=== PATIENT | female | born 1990 | race Caucasian/White ===

== ENCOUNTER 2016-10-29 16:48 | Emergency (ER) | payer SELFPAY ==
[2016-10-29] MEDS: ONDANSETRON HCL/PF 4 MG/ 2ML VIAL IVP ONE (17:00)
[2016-10-29] MEDS: 0.9 % SODIUM CHLORIDE 1,000 ML IV ONE (17:00)
[2016-10-29] MEDS ORDERED: 0.9 % SODIUM CHLORIDE 1,000 ML IV ONE (17:01)
[2016-10-29] MEDS ORDERED: ONDANSETRON HCL/PF 4 MG/ 2ML VIAL ONE (17:01)
[2016-10-29 17:15] LABS: BASOPHILS % 0.6 (0.0-1.5); EOSINOPHILS % 2.5 % (0.0-6.8); LYMPHOCYTES # 3.1 # k/uL (0.6-4.0); MEAN CORPUSCULAR HEMOGLOBIN 28.7 pg (28.0-34.0); MONOCYTES # 0.4 # k/uL (0.0-0.9); MONOCYTES % 3.2 % (0.0-11.0)
[2016-10-29 17:30] LABS: eGFR (African) > 60; eGFR (Non-African) > 60
[2016-10-29] MEDS: DIPHENOXYLATE HCL/ATROPINE 1 EACH TABLET PO ONE (17:36)
--- NOTE | 2016-10-29 18:24 | ED Physician Documentation ---
Nausea/Vomiting/Diarrhea - HISTORIAN Historian: patient - HPI Stated Complaint: Nausea and Vomiting Chief Complaint: Nausea,Vomiting,Diarrhea Additional Information: works at [employer], n/v/d going around the facility Onset: days ago (1) Duration: sudden-onset Last known Well Date: 10/28/16 Last Known Well Time: 06:00 Last known Well Code/Unknown Code: Unknown Timing: sudden onset Context: denies: out of country travel, bad food, recent trauma Severity: mild Further Comments: no - Associated Symptoms Vomiting: mild Diarrhea: mild Abdominal Pain: none - ROS CONST: none CVS/RESP: denies: chest pain, shortness of breath, cough, dry cough, non- productive cough, productive cough, bloody cough EYES/ENT: none MS/SKIN/LYMPH: denies: joint pain, leg swelling, rash, swollen glands, ankle swelling NEURO/PSYCH: none - PAST HX Past History: none Other History: denies: gall stones, colon problems, Crohn's, ulcerative colitis , IBS, cardiac disease, AMI, CHF, A-Fib, hypertension, hepatitis, HIV Surgeries/Procedures: appendectomy Immunizations: referred to PCP Allergies/Adverse Reactions: Allergies Allergy/AdvReac Type Severity Reaction Status Date / Time No Known Allergies Allergy Verified 10/29/16 17:14 Home Medications: Ambulatory Orders Medication Instructions Recorded NK [NK] 12/19/14 - SOCIAL HX Smoking History: quit less than 1 year Alcohol Use: none Drug Use: none - FAMILY HX Family History: none - VITAL SIGNS Vital Signs: Vital Signs Temp Pulse Resp BP Pulse Ox 97.4 F L 72 18 118/68 99 10/29/16 16:50 10/29/16 18:34 10/29/16 18:34 10/29/16 18:34 10/29/16 18:34 - REVIEWED ASSESSMENTS Nursing Assessment Reviewed: Yes Vitals Reviewed: Yes Progress - Results/Orders Results/Orders: cbc, cmp, amylase, ua ordered - Progress Progress: pt. given 1 liter ns, 8 mg ofran ivp and 1 lomotil p.o. in er Critical Care Note - Critical Care Note Total Time (mins): 0 ED Results Lab/Radiology - Lab Results Lab Results: Lab Results 10/29/16 10/29/16 17:10 17:10 WBC 13.00 K/ul H K/ul (4.00-12.00) RBC 5.26 M/ul H M/ul (3.90-5.20) Hgb 15.1 g/dL g/dL (12.0-16.0) Hct 44.9 % % (34.5-46.5) MCV 85.4 fl fl (80.0-100.0) MCH 28.7 pg pg (28.0-34.0) MCHC 33.6 g/dL g/dL (30.0-36.0) RDW 13.6 % % (11.3-14.3) Plt Count 239 K/mm3 K/mm3 (130-400) Neut % (Auto) 69.1 % % (39.0-79.0) Lymph % (Auto) 23.6 % % (16.0-50.0) [place] % (Auto) 3.2 % % (0.0-11.0) Eos % (Auto) 2.5 % % (0.0-6.8) Baso % (Auto) 0.6 (0.0-1.5) Neut # 9.0 # k/uL H # k/uL (1.4-7.7) Lymph # 3.1 # k/uL # k/uL (0.6-4.0) [place] # 0.4 # k/uL # k/uL (0.0-0.9) Eos # 0.3 # k/uL # k/uL (0.0-0.6) Baso # 0.1 # k/uL # k/uL (0.0-0.5) Reactive Lymphs % 1.0 % % (0.0-5.0) Reactive Lymphs # 0.1 # k/uL # k/uL (0.0-0.8) Sodium 142 mmol/L mmol/L (136-145) Potassium 3.8 mmol/L mmol/L (3.5-5.0) Chloride 107 mmol/L mmol/L (98-110) Carbon Dioxide 30 mmol/L mmol/L (20-32) BUN 15 mg/dL mg/dL (10-26) Creatinine 0.8 mg/dL mg/dL (0.4-1.5) Estimated Creat Clear 203 Est GFR ( Amer) > 60 (60 - ) Est GFR (Non-Af Amer) > 60 (60 - ) Glucose 151 mg/dL H mg/dL (70-99) Calcium 9.9 mg/dL mg/dL (8.5-10.5) Total Bilirubin 0.3 mg/dL mg/dL (0.2-1.2) AST 19 U/L U/L (0-41) ALT 28 U/L U/L (0-45) Alkaline Phosphatase 70 U/L U/L (46-116) Total Protein 7.7 g/dL g/dL (6.0-8.5) Albumin 4.6 g/dL g/dL (3.0-5.5) Amylase 30 U/L U/L (20-104) - Radiology Radiology Impressions: none ordered - Orders Orders: ED Orders Category Date Time Status Orthostatics 1T Care 10/29/16 17:[address] Saline Lock/IV Now Care 10/29/16 17:07 Active AMYLASE Routine Lab 10/29/16 17:10 Completed CBC/PLATELET/DIFF Routine Lab 10/29/16 17:10 Completed CMP Routine Lab 10/29/16 17:10 Completed URINALYSIS Routine Lab 10/29/16 17:11 Ordered 0.9 % Sodium Chloride [Normal Saline] 1,000 ml Med 10/29/16 17:01 Discontinued IV .STK-MED 0.9 % Sodium Chloride [Normal Saline] 1,000 ml Med 10/29/16 17:00 Discontinued IV Q1H Diphenoxylate HCl/Atropine [Lomotil] Med 10/29/16 17:32 Discontinued 1 each PO NOW ONE Ondansetron HCl/Pf [Zofran 4 mg/2 ml] Med 10/29/16 17:01 Discontinued 8 mg .ROUTE .STK-MED ONE Ondansetron HCl/Pf [Zofran 4 mg/2 ml] Med 10/29/16 17:00 Discontinued 8 mg IVP NOW ONE Nausea Physical Exam - EXAM General Appearance: no acute distress EENT: eye inspection normal, ENT inspection normal, pharynx normal, no signs of dehydration, JUSTIN, no nystagmus, TM's nml Neck: normal inspection, thyroid normal, supple Respiratory: no resp distress, chest non-tender, breath sounds normal CVS: reg rate & rhythm, heart sounds normal, equal pulses, no gallop, PMI nml, no JVD Abdomen: non-tender, no organomegaly, other (normal bs). No: guarding, rebound Back: non-tender, painless ROM Skin: warm/dry Extremities: non-tender, normal range of motion, no evidence of injury, no edema Neuro/Psych: oriented X3, CN's nml as tested, motor nml, sensation nml, mood/ affect nml, cognition normal Discharge Clincal Impression: Gastroenteritis Referrals: Primary Doctor,No [Primary Care Provider] - 2 Days Home Medications: Ambulatory Orders NK [NK] 12/19/14 Comments: Discharged in stable condition s with scrits for # 10 each: Lomotil 2.5/0.025 mg 1 p.o. qid prn diarrhea and Zofran 4 mg 1 p.o. qid prn n/v. Condition: Stable Disposition: 01 HOME, SELF-CARE Decision to Admit: NO Decision Time: 18:15
[2016-10-29 18:37] VITALS: BP 118/68
== END 2016-10-29 18:34 | disposition home or self-care (01) ==
LOC: ED 16:48
DX: K52.9 Noninfective gastroenteritis and colitis, unspecified (principal)
CPT/HCPCS: 80053; 82150; 85025; 96361; 96374; 99283; J2405; J7030; S1016

== ENCOUNTER 2017-01-06 18:51 | Emergency (ER) | payer OTHER ==
[2017-01-06] MEDS ORDERED: 0.9 % SODIUM CHLORIDE 1,000 ML IV ONE (19:11)
[2017-01-06] MEDS ORDERED: ONDANSETRON HCL/PF 4 MG/ 2ML VIAL ONE (19:11)
[2017-01-06] MEDS: 0.9 % SODIUM CHLORIDE 1,000 ML IV ONE (19:29)
[2017-01-06] MEDS: ONDANSETRON HCL/PF 4 MG/ 2ML VIAL IVP ONE (19:29)
[2017-01-06 19:41] LABS: EOSINOPHILS % 1.4 % (0.0-6.8); MEAN CORPUSCULAR HEMOGLOBIN 27.8 pg (28.0-34.0); MEAN CORPUSCULAR VOLUME 85.2 fl (80.0-100.0); MONOCYTES % 2.7 % (0.0-11.0); NEUTROPHILS # 11.4 # k/uL (1.4-7.7)
[2017-01-06 19:43] LABS: BASOPHILS % 0.4 (0.0-1.5)
[2017-01-06] MEDS ORDERED: cefTRIAXone SODIUM ADVANTAGE 1 GM VIAL.PORT IV ONE (19:55)
[2017-01-06] MEDS ORDERED: 0.9 % SODIUM CHLORIDE 100 ML IV ONE (19:56)
[2017-01-06 20:00] LABS: eGFR (African) > 60; eGFR (Non-African) > 60
[2017-01-06] MEDS: cefTRIAXone SODIUM 1 GM in 0.9 % SODIUM CHLORIDE 50 ML IV SCH (20:04)
--- NOTE | 2017-01-06 21:03 | ED Physician Documentation ---
Sore Throat/Dental Pain - HISTORIAN Historian: patient - HPI Stated Complaint: sore throat Chief Complaint: Sore Throat Additional Information: sore throat onset 2-3 d ago progressive - fever n/e freq past strept throat Onset: days ago (3) Associated Symptoms: fever, chills, sore throat, moderate, congestion, swollen glands - ROS CONST: no problems CVS/RESP: none GI/: denies: problems urinating, nausea, vomiting MS/SKIN/LYMPH: denies: muscle aches, rash, leg swelling NEURO/PSYCH: none - PAST HX Past History: other (freq stept trhoat) Other History: diabetes Type 2 Immunizations: UTD Allergies/Adverse Reactions: Allergies Allergy/AdvReac Type Severity Reaction Status Date / Time No Known Allergies Allergy Verified 01/06/17 19:09 Home Medications: Ambulatory Orders Medication Instructions Recorded Amoxicillin [Trimox] 500 mg PO TID #30 capsule 01/06/17 - SOCIAL HX Smoking History: non-smoker Alcohol Use: none Drug Use: none - FAMILY HX Family History: No - VITAL SIGNS Vital Signs: Vital Signs Temp Pulse Resp BP Pulse Ox 100.1 F H 117 H 18 103/79 96 01/06/17 19:05 01/06/17 19:05 01/06/17 19:05 01/06/17 19:05 01/06/17 19:05 - REVIEWED ASSESSMENTS Nursing Assessment Reviewed: Yes Vitals Reviewed: Yes ED Results Lab/Radiology - Lab Results Lab Results: Lab Results 01/06/17 01/06/17 19:40 19:40 WBC 13.72 K/ul H K/ul (4.00-12.00) RBC 5.10 M/ul M/ul (3.90-5.20) Hgb 14.2 g/dL g/dL (12.0-16.0) Hct 43.5 % % (34.5-46.5) MCV 85.2 fl fl (80.0-100.0) MCH 27.8 pg L pg (28.0-34.0) MCHC 32.7 g/dL g/dL (30.0-36.0) RDW 12.9 % % (11.3-14.3) Plt Count 243 K/mm3 K/mm3 (130-400) Neut % (Auto) 84.7 % H % (39.0-79.0) Lymph % (Auto) 10.0 % L % (16.0-50.0) [place] % (Auto) 2.7 % % (0.0-11.0) Eos % (Auto) 1.4 % % (0.0-6.8) Baso % (Auto) 0.4 (0.0-1.5) Neut # 11.4 # k/uL H # k/uL (1.4-7.7) Lymph # 1.3 # k/uL # k/uL (0.6-4.0) [place] # 0.4 # k/uL # k/uL (0.0-0.9) Eos # 0.2 # k/uL # k/uL (0.0-0.6) Baso # 0.1 # k/uL # k/uL (0.0-0.5) Reactive Lymphs % 0.7 % % (0.0-5.0) Reactive Lymphs # 0.1 # k/uL # k/uL (0.0-0.8) Sodium 138 mmol/L mmol/L (136-145) Potassium 3.7 mmol/L mmol/L (3.5-5.0) Chloride 102 mmol/L mmol/L (98-110) Carbon Dioxide 33 mmol/L H mmol/L (20-32) BUN 10 mg/dL mg/dL (10-26) Creatinine 0.6 mg/dL mg/dL (0.4-1.5) Estimated Creat Clear 264 Est GFR ( Amer) > 60 (60 - ) Est GFR (Non-Af Amer) > 60 (60 - ) Glucose 136 mg/dL H mg/dL (70-99) Calcium 9.5 mg/dL mg/dL (8.5-10.5) Total Bilirubin 0.8 mg/dL mg/dL (0.2-1.2) AST 21 U/L U/L (0-41) ALT 29 U/L U/L (0-45) Alkaline Phosphatase 70 U/L U/L (46-116) Total Protein 7.7 g/dL g/dL (6.0-8.5) Albumin 4.6 g/dL g/dL (3.0-5.5) - Orders Orders: ED Orders Category Date Time Status Place IV Lock 1T Care 01/06/17 19:10 Active CBC/PLATELET/DIFF Routine Lab 01/06/17 19:40 Completed CMP Routine Lab 01/06/17 19:40 Completed GRP A STREP SCREEN Routine Lab 01/06/17 Ordered 0.9 % Sodium Chloride [Normal Saline] 1,000 ml Med 01/06/17 19:11 Discontinued IV .STK-MED 0.9 % Sodium Chloride [Normal Saline] 1,000 ml Med 01/06/17 19:10 Discontinued IV Q1H 0.9 % Sodium Chloride [Sodium Chloride] 100 ml Med 01/06/17 19:56 Discontinued IV .STK-MED Amoxicillin [Amoxil] Med 01/06/17 20:58 Discontinued 1,000 mg PO NOW ONE Ondansetron HCl/Pf [Zofran 4 mg/2 ml] Med 01/06/17 19:11 Discontinued 4 mg .ROUTE .STK-MED ONE Ondansetron HCl/Pf [Zofran 4 mg/2 ml] Med 01/06/17 19:09 Discontinued 4 mg IVP NOW ONE cefTRIAXone SODIUM ADVANTAGE [Rocephin Advantage] Med 01/06/17 19:55 Discontinued 1 gm IV .STK-MED ONE cefTRIAXone SODIUM [Rocephin] 1 gm Med 01/06/17 20:00 Ordered 0.9 % Sodium Chloride [Sodium Chloride] 50 ml IV QD Sore throat Physical Exam - EXAM General Appearance: moderate distress Head/Neck: head nml inspection, trachea midline, thyroid nml, cervical lymphadenopathy, anterior. No: no lymphadenopathy, pain over sinuses Eyes: eyes nml inspection Mouth/Throat: no air way problems. No: pharynx nml Ear/Nose: TM erythema Respiratory: no resp. distress CVS: reg. rate & rhythm, heart sounds nml Abdomen: soft, non-tender Extremities: non-tender, nml ROM Skin: warm/dry, normal color. No: cyanosis, diaphoresis, jaundice Neuro/Psych: oriented x3, mood/affect nml Discharge Clincal Impression: Streptococcal sore throat Prescriptions: Amoxicillin [Trimox] 500 mg PO TID #30 capsule Referrals: Gareth Weeks MD [Primary Care Provider] - 2 Days Home Medications: Ambulatory Orders Amoxicillin [Trimox] 500 mg PO TID #30 capsule 01/06/17 Comments: home meds f/u w/pcp Disposition: 01 HOME, SELF-CARE Decision to Admit: NO Decision Time: 21:03
[2017-01-06] MEDS: AMOXICILLIN 500 MG CAPSULE PO ONE (21:10)
[2017-01-06 21:20] VITALS: BP 105/73
== END 2017-01-06 21:15 | disposition home or self-care (01) ==
LOC: ED 18:51
DX: J02.0 Streptococcal pharyngitis (principal)
CPT/HCPCS: 80053; 85025; 87880; J0696; J2405; J7030; 96365; 96375; 99283; S1016

== ENCOUNTER 2017-08-07 20:22 | Emergency (ER) | payer SELFPAY ==
--- NOTE | 2017-08-07 20:34 | ED Physician Documentation ---
General Adult - HISTORIAN Historian: patient - HPI Stated Complaint: n/v/d Chief Complaint: General Adult Onset: hours Timing: still present Severity: moderate Further Comments: yes (Pt is a 27 yo female with nausea/vomiting/diarrhea x 1 day. Pt is lightheaded with standing. No sore throat. Achy.) - ROS CONST: weakness, chills EYES/ENT: none CVS/RESP: none GI/: vomiting, nausea, diarrhea MS/SKIN/LYMPH: none - PAST HX Past History: other (MRSA, De La Cruz's Palsy) Surgeries/Procedures: other (appendectomy) Allergies/Adverse Reactions: Allergies Allergy/AdvReac Type Severity Reaction Status Date / Time No Known Allergies Allergy Verified 08/07/17 21:28 Home Medications: Ambulatory Orders Medication Instructions Recorded Ciprofloxacin [Cipro] 500 mg PO Q12H #10 ml 08/07/17 - SOCIAL HX Smoking History: cigarettes - FAMILY HX Family History: No - VITAL SIGNS Vital Signs: Vital Signs Temp Pulse Resp BP Pulse Ox 105/73 01/06/17 21:17 - REVIEWED ASSESSMENTS Nursing Assessment Reviewed: Yes Vitals Reviewed: Yes Progress - Progress Progress: NS 1 L IVF Zofran 4 mg IV Rx Ciprofloxacin 500 mg po bid x 5 days, 1st dose in ER. General Adult Physical Exam - PHYSICAL EXAM GENERAL APPEARANCE: mild distress EENT: pharynx normal NECK: normal inspection, supple RESPIRATORY: no resp distress, chest non-tender, breath sounds normal CVS: reg rate & rhythm, heart sounds normal ABDOMEN: soft, normal bowel sounds, non-tender (mild lower abd tenderness) BACK: normal inspection, no CVA tenderness SKIN: warm/dry, normal color EXTREMITIES: non-tender, normal range of motion, no evidence of injury NEURO: oriented X3, motor nml, sensation nml Discharge Clincal Impression: diarrhea UTI (urinary tract infection) Qualifiers: Urinary tract infection type: site unspecified Hematuria presence: without hematuria Qualified Code(s): N39.0 - Urinary tract infection, site not specified Nausea & vomiting Qualifiers: Vomiting type: unspecified Vomiting Intractability: non-intractable Qualified Code(s): R11.2 - Nausea with vomiting, unspecified Prescriptions: Ciprofloxacin [Cipro] 500 mg PO Q12H #10 ml Referrals: Gareth Weeks MD [Primary Care Provider] - Condition: Good Disposition: 01 HOME, SELF-CARE Decision to Admit: NO Decision Time: 21:47
[2017-08-07 20:57] LABS: BASOPHILS % 0.4 (0.0-1.5); EOSINOPHILS % 2.9 % (0.0-6.8); MEAN CORPUSCULAR HEMOGLOBIN 28.1 pg (28.0-34.0); MEAN CORPUSCULAR VOLUME 83.8 fl (80.0-100.0); MONOCYTES % 3.3 % (0.0-11.0); NEUTROPHILS # 7.8 # k/uL (1.4-7.7)
[2017-08-07] MEDS: 0.9 % SODIUM CHLORIDE 1,000 ML IV ONE (21:00)
[2017-08-07] MEDS: ONDANSETRON HCL/PF 4 MG/ 2ML VIAL IVP ONE (21:00)
[2017-08-07 21:18] LABS: eGFR (African) > 60; eGFR (Non-African) > 60
[2017-08-07] MEDS: CIPROFLOXACIN HCL 500 MG TABLET PO ONE (21:44)
[2017-08-07 22:10] VITALS: BP 118/76
[2017-08-08 09:24] LABS: APPEARANCE,URINE CLOUDY (CLEAR); COLOR,URINE YELLOW (YELLOW); OCCULT BLOOD,URINE TRACE-INTACT (NEGATIVE); PH URINE 5.5 (5.0 - 8.0); UROBILINOGEN URINE 0.2 Eu (0.2-1.0)
== END 2017-08-07 22:05 | disposition home or self-care (01) ==
LOC: ED 20:22
DX: R19.7 Diarrhea, unspecified (principal); R11.2 Nausea with vomiting, unspecified; N39.0 Urinary tract infection, site not specified
CPT/HCPCS: 80053; 81002; 85025; 87086; 87400; J2405; J7030; 96361; 96374; 99283

== ENCOUNTER 2017-09-07 18:48 | Emergency (ER) | payer OTHER ==
--- NOTE | 2017-09-07 19:12 | ED Physician Documentation ---
Abdominal Pain - HISTORIAN Historian: patient - HPI Stated Complaint: Lower abdominal pain Chief Complaint: Abdominal Pain Onset: days ago (2 days) Duration: waxing, waning Timing: still present Context: denies: out of country travel, bad food Severity: moderate Quality: pain, stabbing Associated Symptoms: denies: fever, chills Exacerbated by: movements Relieved by: remaining still, other (pressure to lower abd) - ROS CONST: no problems - SOCIAL HX Smoking History: less than 1 pack/day (4-5 cirg/day) Alcohol Use: occasionally Drug Use: none - FAMILY HX Family History: no significant history - PAST HX Past History: other (DM type 2,) Ischemic Bowel Risk Factors: none Other History: none Surgeries/Procedures: none, appendectomy Immunizations: referred to PCP - REVIEWED ASSESSMENTS Nursing Assessment Reviewed: Yes Vitals Reviewed: Yes <Joe Reed - Last Filed: 09/07/17 19:09> <PO UPTON - Last Filed: 09/07/17 20:36> - HPI Additonal Information: @ day history of pain in the overies bialt. Has had a history of ovarian cysts before bilaterally. States pain feels similar. Pain comes and goes, described as a stabbing pressure feeling. If applies external pressure it seems to helps some. Walking seems to make it worse. Patient states UTI one month ago. Was started on antibiotics. Has noticed a vaginal discharge at that time, was checked for STD and that was negative, but was treated for it anyway. . Continues to have problems. Has taken diflucan, cran martinez juice, yogurt, monistat OTC and nothing has helped. (Joe Reed) - PAST HX Home Medications: Ambulatory Orders Medication Instructions Recorded NK [NK] 09/07/17 Allergies/Adverse Reactions: Allergies Allergy/AdvReac Type Severity Reaction Status Date / Time No Known Allergies Allergy Verified 09/07/17 19:08 - VITAL SIGNS Vital Signs: Vital Signs Temp Pulse Resp BP Pulse Ox 98.0 F 93 H 18 113/81 98 09/07/17 18:50 09/07/17 18:50 09/07/17 18:50 09/07/17 18:50 09/07/17 18:50 Progress <Joe Reed - Last Filed: 09/07/17 19:09> <PO UPTON - Last Filed: 09/07/17 20:36> - Progress Progress: 1999 reviewed lab and UA results with patient. Patient reports she has metronidazole at home which was prescribed by her PCP. Patient states she did not start the medication because she started her menses. Instructed patient to start metronidazole. Follow up with PCP to rule out ovarian cysts, use tylenol or ibuprofen as needed for discomfort. (PO UPTON) - Lab Results Lab Results: Lab Results 09/07/17 09/07/17 19:40 19:40 WBC 11.40 K/ul K/ul (4.00-12.00) RBC 4.92 M/ul M/ul (3.90-5.20) Hgb 13.8 g/dL g/dL (12.0-16.0) Hct 40.8 % % (34.5-46.5) MCV 83.0 fl fl (80.0-100.0) MCH 28.1 pg pg (28.0-34.0) MCHC 33.9 g/dL g/dL (30.0-36.0) RDW 13.4 % % (11.3-14.3) Plt Count 254 K/mm3 K/mm3 (130-400) Neut % (Auto) 59.5 % % (39.0-79.0) Lymph % (Auto) 28.4 % % (16.0-50.0) [place] % (Auto) 5.0 % % (0.0-11.0) Eos % (Auto) 4.6 % % (0.0-6.8) Baso % (Auto) 0.8 (0.0-1.5) Neut # (Auto) 6.8 # k/uL # k/uL (1.4-7.7) Lymph # (Auto) 3.2 # k/uL # k/uL (0.6-4.0) [place] # (Auto) 0.6 # k/uL # k/uL (0.0-0.9) Eos # (Auto) 0.5 # k/uL # k/uL (0.0-0.6) Baso # (Auto) 0.1 # k/uL # k/uL (0.0-0.5) Reactive Lymphs % 1.7 % % (0.0-5.0) Reactive Lymphs # 0.2 # k/uL # k/uL (0.0-0.8) Sodium 141 mmol/L mmol/L (136-145) Potassium 3.8 mmol/L mmol/L (3.5-5.1) Chloride 104 mmol/L mmol/L (98-107) Carbon Dioxide 24 mmol/L mmol/L (22-30) BUN 13 mg/dL mg/dL (7-17) Creatinine 0.70 mg/dL mg/dL (0.52-1.04) Estimated Creat Clear 138 Est GFR ( Amer) > 60 (60 - ) Est GFR (Non-Af Amer) > 60 (60 - ) Glucose 140 mg/dL H mg/dL (74-106) Calcium 9.0 mg/dL mg/dL (8.4-10.2) Total Bilirubin 0.5 mg/dL mg/dL (0.2-1.3) AST 23 U/L U/L (15-46) ALT 38 U/L U/L (13-69) Alkaline Phosphatase 72 U/L U/L (38-126) Total Protein 7.0 g/dL g/dL (6.3-8.2) Albumin 3.7 g/dL g/dL (3.5-5.0) - Orders Orders: ED Orders Category Date Time Status CBC/PLATELET/DIFF Routine Lab 09/07/17 19:40 Completed CMP Routine Lab 09/07/17 19:40 Completed URINALYSIS Routine Lab 09/07/17 19:30 Ordered Abdominal Pain Physical Exam - Physical Exam General Appearance: alert, mild distress NECK: normal inspection, supple RESPIRATORY: no resp distress, chest non-tender, breath sounds normal. No: wheezes, rales, rhonchi CVS: reg rate & rhythm, heart sounds normal, equal pulses, no murmur ABDOMEN: soft, no organomegaly, normal bowel sounds, no abdominal bruit, no distension, non-tender BACK: normal inspection, no CVA tenderness EXTREMITIES: non-tender, normal range of motion, no evidence of injury, no edema NEURO: oriented X3, cognition normal <Joe Reed - Last Filed: 09/07/17 19:09> - Physical Exam Vital Signs: Vital Signs Temp Pulse Resp BP Pulse Ox 98.0 F 93 H 18 113/81 98 09/07/17 18:50 09/07/17 18:50 09/07/17 18:50 09/07/17 18:50 09/07/17 18:50 Discharge <Joe Reed - Last Filed: 09/07/17 19:09> Decision to Admit: NO Decision Time: 20:06 <PO UPTON - Last Filed: 09/07/17 20:36> Clincal Impression: Bacterial vaginosis Referrals: Gareth Weeks MD [Primary Care Provider] - 2 Days Additional Instructions: Start your metronidazole tonight. No intercourse until you have completed the antibiotic. No douching No smoking Follow up with your primary care provider if you continue to have pain and discharge after completing the metronidazole. Condition: Stable Disposition: 01 HOME, SELF-CARE
[2017-09-07 19:52] LABS: BASOPHILS % 0.8 (0.0-1.5); EOSINOPHILS % 4.6 % (0.0-6.8); MEAN CORPUSCULAR HEMOGLOBIN 28.1 pg (28.0-34.0); NEUTROPHILS # 6.8 # k/uL (1.4-7.7)
[2017-09-07 19:54] LABS: eGFR (African) > 60; eGFR (Non-African) > 60
[2017-09-07 20:23] VITALS: BP 118/72
[2017-09-08 09:23] LABS: APPEARANCE,URINE CLOUDY (CLEAR); COLOR,URINE YELLOW (YELLOW); OCCULT BLOOD,URINE 3+ (NEGATIVE); UROBILINOGEN URINE 0.2 Eu (0.2-1.0)
== END 2017-09-07 20:15 | disposition home or self-care (01) ==
LOC: ED 18:48
DX: N76.0 Acute vaginitis (principal); E11.9 Type 2 diabetes mellitus without complications
CPT/HCPCS: 80053; 81002; 85025; 99282; 99283

== ENCOUNTER 2018-01-30 20:09 | Emergency (ER) | payer SELFPAY ==
[2018-01-30] MEDS ORDERED: ONDANSETRON HCL 4 MG TAB.RAPDIS PO ONE (20:40)
[2018-01-30] MEDS ORDERED: 0.9 % SODIUM CHLORIDE 1,000 ML IV ONE (20:40)
--- NOTE | 2018-01-30 20:41 | ED Physician Documentation ---
GI Bleed - HISTORIAN Historian: patient - HPI Chief Complaint: Nausea,Vomiting,Diarrhea Additional Information: Patient started at 6am today with sharp abdominal pain, that went to her back, then joints started hurting. She developed nausea/vomiting/diarrhea off and on all day. Ate biscuits and gravy at noon today. "Feels like knives" are stabbing lower abdomen. Has felt hot and cold but no fever. No sick contacts. Trying to drink H2O. Onset: days ago (1) Timing: gradual onset Severity: moderate Further Comments: yes (Sexually active but no control.) - Associated Symptoms Description of Stools: diarrhea (yellow) Abdominal Pain: moderate, suprapubic, periumbilical Emesis Description: denies: blood, coffee grounds, blood-streaked Other Related Symptoms: nausea, vomiting, back pain. denies: fainting, light- headedness - ROS CONST: no problems SKIN/LYMPH: denies: leg swelling CVS/RESP: denies: chest pain - PAST HX Past History: other (DM - no meds; last A1C last month 7) Surgeries/Procedures: appendectomy Allergies/Adverse Reactions: Allergies Allergy/AdvReac Type Severity Reaction Status Date / Time No Known Allergies Allergy Verified 01/30/18 22:29 Home Medications: Ambulatory Orders Medication Instructions Recorded NK [NK] 09/07/17 - SOCIAL HX Smoking History: non-smoker Alcohol Use: none Drug Use: none - FAMILY HX Family History: none - VITAL SIGNS Vital Signs: Vital Signs Temp Pulse Resp BP Pulse Ox 99.0 F 81 20 146/103 95 01/30/18 20:09 01/30/18 20:09 01/30/18 20:09 01/30/18 20:09 01/30/18 20:09 - REVIEWED ASSESSMENTS Nursing Assessment Reviewed: Yes Vitals Reviewed: Yes Progress - Results/Orders Results/Orders: Patient feeling better after zofran. ED Results Lab/Radiology - Lab Results Lab Results: Lab Results 01/30/18 01/30/18 21:23 21:23 WBC 12.70 K/ul H K/ul (4.00-12.00) RBC 5.55 M/ul H M/ul (3.90-5.20) Hgb 15.6 g/dL g/dL (12.0-16.0) Hct 46.5 % % (34.5-46.5) MCV 83.9 fl fl (80.0-100.0) MCH 28.1 pg pg (28.0-34.0) MCHC 33.5 g/dL g/dL (30.0-36.0) RDW 13.3 % % (11.3-14.3) Plt Count 253 K/mm3 K/mm3 (130-400) Neut % (Auto) 78.2 % % (39.0-79.0) Lymph % (Auto) 14.7 % L % (16.0-50.0) [place] % (Auto) 4.6 % % (0.0-11.0) Eos % (Auto) 0.9 % % (0.0-6.8) Baso % (Auto) 0.6 (0.0-1.5) Neut # (Auto) 9.9 # k/uL H # k/uL (1.4-7.7) Lymph # (Auto) 1.9 # k/uL # k/uL (0.6-4.0) [place] # (Auto) 0.6 # k/uL # k/uL (0.0-0.9) Eos # (Auto) 0.1 # k/uL # k/uL (0.0-0.6) Baso # (Auto) 0.1 # k/uL # k/uL (0.0-0.5) Reactive Lymphs % 1.0 % % (0.0-5.0) Reactive Lymphs # 0.1 # k/uL # k/uL (0.0-0.8) Sodium 136 mmol/L mmol/L (136-145) Potassium 4.7 mmol/L mmol/L (3.5-5.1) Chloride 100 mmol/L mmol/L (98-107) Carbon Dioxide 24 mmol/L mmol/L (22-30) BUN 15 mg/dL mg/dL (7-17) Creatinine 0.70 mg/dL mg/dL (0.52-1.04) Est GFR ( Amer) > 60 (60 - ) Est GFR (Non-Af Amer) > 60 (60 - ) Glucose 173 mg/dL H mg/dL (74-106) Calcium 9.7 mg/dL mg/dL (8.4-10.2) Total Bilirubin 0.5 mg/dL mg/dL (0.2-1.3) AST 30 U/L U/L (15-46) ALT 35 U/L U/L (13-69) Alkaline Phosphatase 69 U/L U/L (38-126) Total Protein 9.0 g/dL H g/dL (6.3-8.2) Albumin 4.7 g/dL g/dL (3.5-5.0) - Radiology Radiology Impressions: Hepatic Steatosis Shoddy LAD - Orders Orders: ED Orders Category Date Time Status Place IV Lock 1T Care 01/30/18 21:[address] ABD & PELVIS W/O CON Stat Exams 01/30/18 Ordered CBC/PLATELET/DIFF Routine Lab 01/30/18 21:23 Completed CMP [CMP] Routine Lab 01/30/18 21:23 Completed URINALYSIS Routine Lab 01/30/18 Ordered URINE HCG Urgent Lab 01/30/18 20:40 Ordered 0.9 % Sodium Chloride [Normal Saline] 1,000 ml Med 01/30/18 20:40 Discontinued IV Q2H Ketorolac Tromethamine [Toradol] Med 01/30/18 21:58 Discontinued 30 mg IVP NOW ONE Ondansetron HCl Rapdis [Zofran Odt] Med 01/30/18 20:40 Discontinued 4 mg PO NOW ONE Abdominal Pain Physical Exam - Physical Exam General Appearance: mild distress EENT: eye inspection normal, ENT inspection normal, pharynx normal. No: no signs of dehydration RESPIRATORY: no resp distress CVS: reg rate & rhythm, heart sounds normal ABDOMEN: soft, normal bowel sounds, tenderness (BLQ). No: rebound, distended, guarding NEURO: oriented X3 Vital Signs: Vital Signs Temp Pulse Resp BP Pulse Ox 99.0 F 81 20 146/103 95 01/30/18 20:09 01/30/18 20:09 01/30/18 20:09 01/30/18 20:09 01/30/18 20:09 Discharge Clincal Impression: Gastroenteritis Referrals: Primary Doctor,No [Primary Care Provider] - 2 Days Condition: Good Disposition: 01 HOME, SELF-CARE Decision to Admit: NO Decision Time: 23:00
[2018-01-30 21:28] LABS: BASOPHILS % 0.6 (0.0-1.5); EOSINOPHILS % 0.9 % (0.0-6.8); MEAN CORPUSCULAR HEMOGLOBIN 28.1 pg (28.0-34.0); MEAN CORPUSCULAR VOLUME 83.9 fl (80.0-100.0); MONOCYTES % 4.6 % (0.0-11.0); NEUTROPHILS # 9.9 # k/uL (1.4-7.7)
[2018-01-30 21:46] LABS: eGFR (African) > 60; eGFR (Non-African) > 60
[2018-01-30] MEDS ORDERED: KETOROLAC TROMETHAMINE 30 MG/1ML VIAL IVP ONE (21:58)
[2018-01-30 23:51] VITALS: BP 121/75
--- NOTE | 2018-01-31 06:37 | Diagnostic Imaging Report ---
RUBY BARRIOS [facility] [address] [facility] [address] [place], [place]. [address] Report Submission Date: Jan 30, 2018 11:00:00 PM CDT Patient Study Name: GLENNY COSTELLO Date: Jan 30, 2018 10:23:26 PM CDT Modality Type: CT\SR Gender: F Description: CT ABD PELVIS W/O CO : 91 Institution: [facility] Physician: RUBY BARRIOS CT of abdomen and pelvis without contrast Clinical history: Abdominal and flank pain. Technique: CT of the abdomen and pelvis is performed without oral or intravenous administration of contrast. Sagittal and coronal reconstructions are performed by the technologist. Findings: Visualized lung bases are clear. The liver is diffusely hypodense and less dense than the unopacified blood vessels consistent with hepatic steatosis. There is no focal abnormality in the liver or spleen. Gallbladder is normally distended. There is no pancreatic or adrenal abnormality. The kidneys are of normal size, shape and position. There is no retroperitoneal mass or significant adenopathy. There are postoperative changes with surgical clips in the right lower quadrant. There are small mesenteric lymph nodes in the right lower quadrant. Uterus and adnexal structures are within normal limits with bilateral ovarian follicles. There is no free fluid in the pelvis. Bladder is unremarkable. Impression: 1. Hepatic steatosis. 2. Postoperative changes. 3. Shotty mesenteric adenopathy. Electronically signed on Jan 30, 2018 11:00:00 PM CDT by: Fidel MANUEL
[2018-01-31 08:10] LABS: APPEARANCE,URINE CLEAR (CLEAR); COLOR,URINE AMBER (YELLOW); OCCULT BLOOD,URINE TRACE-INTACT (NEGATIVE); URINE HCG NEGATIVE (NEGATIVE); UROBILINOGEN URINE 0.2 Eu (0.2-1.0)
== END 2018-01-30 23:25 | disposition home or self-care (01) ==
LOC: ED 20:09
DX: K52.9 Noninfective gastroenteritis and colitis, unspecified (principal)
CPT/HCPCS: 74176; 80053; 81002; 81025; 85025; A9270; J1885; J7030; 96365; 96366; 96375; 99284; S1016

== ENCOUNTER 2019-06-22 15:40 | Emergency (ER) | payer OTHER ==
[2019-06-22] MEDS: 0.9 % SODIUM CHLORIDE 1,000 ML IV ONE (16:22)
[2019-06-22 16:31] LABS: BASOPHILS % 0.7 % (0.0-1.5); NEUTROPHILS # 5.5 # k/uL (1.4-7.7)
[2019-06-22 16:45] LABS: eGFR (Non-African) > 60
[2019-06-22 17:06] LABS: A1C 10.1 % (<5.7)
--- NOTE | 2019-06-22 17:27 | ED Physician Documentation ---
Abdominal Pain - HISTORIAN Historian: patient - HPI Stated Complaint: abdominal pain Chief Complaint: Abdominal Pain Additonal Information: 28 year old female presents with c/o upper abdominal discomfort; increased gas and belching; some nausea with an episode of vomiting. She states that she was diagnosed with DM2 a couple of years ago and never took any medications (she was scared of side effects)- she states that her PCP has tried to get her to take meds. She has glucometer machine at home and last took blood sugar 2 months ago and was around 300. She states that she has tried to watch her diet but says it is just too hard and she ends up over eating. Spent a lot of time with patient educating about diabetes and the tank terminal gauger affects. Discussed the potential side effects of DM medication vs hyperglycemia. Patient is willing to start Metformin; she refuses to take insulin. Onset: days ago Duration: waxing, waning Timing: still present Context: denies: out of country travel, bad food Severity: mild Quality: aching Associated Symptoms: nausea, vomiting (x1) Exacerbated by: food (eating a heavy carb diet) Relieved by: nothing - ROS CONST: no problems GI/: none CVS/RESP: none EYES/ENT: none MS/SKIN/LYMPH: none NEURO/PSYCH: none - SOCIAL HX Smoking History: non-smoker Alcohol Use: rarely Drug Use: none - FAMILY HX Family History: none - PAST HX Past History: other (DM2 uncontrolled, Sleep apnea) Ischemic Bowel Risk Factors: none Other History: diabetes Type 2 Surgeries/Procedures: appendectomy Immunizations: UTD Home Medications: Ambulatory Orders Medication Instructions Recorded Metformin HCl 500 mg PO DAILY #30 tablet 06/22/19 Allergies/Adverse Reactions: Allergies Allergy/AdvReac Type Severity Reaction Status Date / Time No Known Allergies Allergy Verified 06/22/19 16:07 - VITAL SIGNS Vital Signs: Vital Signs Temp Pulse Resp BP Pulse Ox 99 F 92 H 22 133/99 99 06/22/19 15:50 06/22/19 15:50 06/22/19 15:50 06/22/19 15:50 06/22/19 15:50 - REVIEWED ASSESSMENTS Nursing Assessment Reviewed: Yes Vitals Reviewed: Yes Progress - Progress Progress: 17:30 Spent quite a bit of time sitting with patient and educating on diabetes; she was diagnosed 2 years ago and never took the medication; discussed insulin and she adamantly refuses but states that she will take the metformin and try to drop off weight. She agrees that she will check blood sugars a couple of times a day; keep a log and take to her follow up appointment. ED Results Lab/Radiology - Lab Results Lab Results: Lab Results 06/22/19 06/22/19 16:27 16:27 WBC 9.90 K/ul K/ul (4.00-12.00) RBC 5.24 M/ul H M/ul (3.90-5.20) Hgb 14.4 g/dL g/dL (11.5-16.0) Hct 44.3 % % (34.5-46.5) MCV 85.0 fl fl (80.0-100.0) MCH 27.6 pg L pg (28.0-34.0) MCHC 32.6 g/dL g/dL (30.0-36.0) RDW 11.5 % % (11.3-14.3) Plt Count 285 K/mm3 K/mm3 (130-400) Neut % (Auto) 55.3 % % (39.0-79.0) Lymph % (Auto) 34.9 % % (16.0-50.0) [place] % (Auto) 6.5 % % (0.0-11.0) Eos % (Auto) 2.6 % % (0.0-6.8) Baso % (Auto) 0.7 % % (0.0-1.5) Neut # (Auto) 5.5 # k/uL # k/uL (1.4-7.7) Lymph # (Auto) 3.5 # k/uL # k/uL (0.6-4.0) [place] # (Auto) 0.6 # k/uL # k/uL (0.0-0.9) Eos # (Auto) 0.3 # k/uL # k/uL (0.0-0.6) Baso # (Auto) 0.1 # k/uL # k/uL (0.0-0.5) Sodium 141 mmol/L mmol/L (137-145) Potassium 3.6 mmol/L mmol/L (3.5-5.1) Chloride 100 mmol/L mmol/L (98-107) Carbon Dioxide 28 mmol/L mmol/L (22-30) Anion Gap 16.6 BUN 14 mg/dL mg/dL (7-17) Creatinine 0.54 mg/dL mg/dL (0.52-1.04) Estimated Creat Clear 316 Est GFR ( Amer) > 60 (60 - ) Est GFR (Non-Af Amer) > 60 (60 - ) Glucose 249 mg/dL H mg/dL (74-106) Hemoglobin A1c 10.1 % H % (<5.7) Calcium 9.7 mg/dL mg/dL (8.4-10.2) Total Bilirubin 0.4 mg/dL mg/dL (0.2-1.3) AST 43 U/L U/L (15-46) ALT 61 U/L H U/L (0-35) Alkaline Phosphatase 128 U/L H U/L (38-126) Total Protein 8.5 g/dL H g/dL (6.3-8.2) Albumin 4.5 g/dL g/dL (3.5-5.0) - Orders Orders: ED Orders Category Date Time Status Place IV Lock 1T Care 06/22/19 16:11 Active ABDOMEN 1VIEW [RAD] Stat Exams 06/22/19 Completed A1C Routine Lab 06/22/19 16:27 Completed CBC/PLATELET/DIFF Stat Lab 06/22/19 16:27 Completed CMP Stat Lab 06/22/19 16:27 Completed URINALYSIS Routine Lab 06/22/19 17:02 Ordered URINE HCG Stat Lab 06/22/19 Uncollected 0.9 % Sodium Chloride [Normal Saline] 1,000 ml Med 06/22/19 16:10 Discontinued IV Q1H Chem Sticks Med 06/22/19 16:13 Ordered 1 each CHEMQ metFORMIN HCl [Glucophage] Med 06/23/19 17:46 Once 500 mg PO NOW ONE Abdominal Pain Physical Exam - Physical Exam General Appearance: no acute distress, alert EENT: eye inspection normal, ENT inspection normal, pharynx normal, dry mucous membranes NECK: normal inspection, supple RESPIRATORY: breath sounds normal CVS: heart sounds normal ABDOMEN: soft, normal bowel sounds, no distension, non-tender BACK: normal inspection SKIN: warm/dry, normal color EXTREMITIES: non-tender, normal range of motion NEURO: oriented X3, CN's nml as tested, motor nml, sensation nml, mood/affect nml, cognition normal Vital Signs: Vital Signs Temp Pulse Resp BP Pulse Ox 99 F 92 H 22 133/99 99 06/22/19 15:50 06/22/19 15:50 06/22/19 15:50 06/22/19 15:50 06/22/19 15:50 Discharge Clincal Impression: Uncontrolled diabetes mellitus Prescriptions: Metformin HCl 500 mg PO DAILY #30 tablet Referrals: Primary Doctor,No [Primary Care Provider] - 2 Days Additional Instructions: Decrease carbs in diet; No whites; sugar, flour, bread, pastas; increase protein Start taking Metformin 500mg by mouth daily; follow with PCP next week for medication adjustment of Metformin Check your blood sugars twice a day; keep a log and take to your PCP appointment Copy of labs sent with patient to take to PCP Condition: Good Disposition: 01 HOME, SELF-CARE Decision to Admit: NO Decision Time: 18:02
--- NOTE | 2019-06-22 17:29 | Diagnostic Imaging Report ---
PATIENT MR#: [id number] PATIENT PATIENT NAME: GLENNY COSTELLO DATE OF : 1990 REFERRING PHYSICIAN: Floresita Vergara EXAM DATE: 06/22/2019 ACCESSION NUMBER: [id number] EXAM DESCRIPTION: ABDOMEN 1VIEW KUB History: Abdominal pain. History of appendectomy Two supine views of the abdomen demonstrate surgical clips at the right lower quadrant consistent wit h an appendectomy. No abnormally dilated loops of large or small bowel are noted and there are no abnormal calcification s. Impression: Surgical clips of the right lower quadrant consistent with prior appendectomy. Nonobstructive bowel gas pattern. Read by: Dr. Kassy Portillo Transcribed by: Transcribed Date: Electronically signed by: Dr. Kassy Portillo Date signed: 06/22/2019 5:29:11 PM
[2019-06-22] MEDS ORDERED: metFORMIN HCl 500 MG TABLET PO ONE (17:56)
[2019-06-22] MEDS: metFORMIN HCl 500 MG TABLET PO ONE (18:09)
[2019-06-22 18:20] VITALS: BP 136/99
[2019-06-22 18:40] LABS: APPEARANCE,URINE CLEAR (CLEAR); COLOR,URINE YELLOW (YELLOW); OCCULT BLOOD,URINE NEGATIVE (NEGATIVE); UROBILINOGEN URINE 0.2 Eu (0.2-1.0)
== END 2019-06-22 18:10 | disposition home or self-care (01) ==
LOC: ED 15:40
DX: E11.65 Type 2 diabetes mellitus with hyperglycemia (principal)
CPT/HCPCS: 74018; 80053; 81002; 83036; 85025; 96360; 99283; 99284; J7030; S1016